=== PATIENT | male | born 1960 | race Caucasian/White ===

== ENCOUNTER 2023-07-18 09:46 | Outpatient (REF) | payer OTHER, SELFPAY ==
[2023-07-18 10:12] LABS: Basophils Absolute Auto 0.04 K/uL (0.00-0.30); Basophils Percent Auto 0.6 % (0.0-3.0); Eosinophils Absolute Auto 0.19 K/uL (0.00-0.50); Eosinophils Percent Auto 2.8 % (0.0-7.0); Hematocrit 45.9 % (37.0-53.0); Hemoglobin* 15.3 gm/dL (13.5-17.5); Immature Granulocytes Abs Auto 0.01 K/uL (0.00-0.30); Immature Granulocytes Pct Auto 0.1 %; Lymphocytes Absolute Auto 2.21 K/uL (0.90-2.90); Mean Corpuscular HGB Conc 33 gm/dL (32-36); Mean Corpuscular Hemoglobin 30 pg (26-34); Mean Corpuscular Volume 91 fL (80-100); Monocytes Percent Auto 8.4 % (0.0-11.0); Neutrophils Absolute Auto 3.68 K/uL (1.7-7.0); Neutrophils Percent Auto 55.1 % (42.0-72.0); Platelet Count* 257 K/uL (140-440); Red Blood Count 5.06 m/uL (4.30-5.90); White Blood Count* 6.69 K/uL (4.50-11.00)
[2023-07-18 10:20] LABS: Slide Review Reflex No
[2023-07-18 10:39] LABS: Albumin* 4.3 g/dL (3.3-5.0); Chloride* 102 mmol/L (96-114)
[2023-07-18 10:40] LABS: Potassium* 4.1 mmol/L (3.6-5.1); Sodium* 140 mmol/L (135-149)
[2023-07-18 10:42] LABS: Anion Gap 8 mEq/L (7-15); Aspartate Amino Transferase* 33 U/L (12-35); Bilirubin Total* 0.7 mg/dL (0.1-1.5); Carbon Dioxide* 30 mmol/L (20-32); Creatinine* 0.8 mg/dL (0.5-1.5); Estimated Glomerular Filt Rate 99 ml/min; Total Protein* 7.2 g/dL (6.0-8.3)
[2023-07-18 10:43] LABS: Alanine Aminotransferase* 29 U/L (4-50); Alkaline Phosphatase* 74 U/L (40-150); Blood Urea Nitrogen* 20 mg/dL (7-30); Calcium* 9.1 mg/dL (8.4-10.6); Glucose* 103 mg/dL (60-115)
[2023-07-18 11:11] LABS: PSA Diagnostic* 4.01 ng/mL (0.10-4.00)
== END 2023-07-18 09:47 | disposition home or self-care (01) ==
LOC: NPINS 09:46
DX: I10 Essential (primary) hypertension (principal); J45.998 Other asthma; E87.6 Hypokalemia; Z79.899 Other long term (current) drug therapy
CPT/HCPCS: 80053; 84153; 85025

== ENCOUNTER 2023-07-26 09:31 | Outpatient (REF) | payer OTHER, SELFPAY ==
[2023-07-26 09:57] LABS: Cholesterol* 159 mg/dL (90-199)
[2023-07-26 09:58] LABS: HDL Cholesterol* 41 mg/dL (>=40); LDL Cholesterol Calculated 87 mg/dL (<100); Triglycerides* 154 mg/dL (40-149)
== END 2023-07-26 09:32 | disposition home or self-care (01) ==
LOC: NPINS 09:31
DX: E78.6 Lipoprotein deficiency (principal)
CPT/HCPCS: 80061